=== PATIENT | male | born 1950 | race Caucasian/White ===

== ENCOUNTER → 2022-05-03 | Outpatient (CLI) | payer MEDICARE, OTHER | LOC: M RAD 09:42 | PROVIDERS: ATTEND Internal Medicine Pulmonary Disease | DX: R91.8 Other nonspecific abnormal finding of lung field (principal) ==

== ENCOUNTER → 2022-05-27 | Outpatient (CLI) | payer MEDICARE, OTHER | LOC: M RAD 12:27 | PROVIDERS: ATTEND Internal Medicine Pulmonary Disease | DX: J84.116 Cryptogenic organizing pneumonia (principal) ==

== ENCOUNTER → 2022-06-29 | Outpatient (CLI) | payer MEDICARE, OTHER | LOC: M RAD 10:19 | PROVIDERS: ATTEND Internal Medicine Pulmonary Disease | DX: R91.8 Other nonspecific abnormal finding of lung field (principal) ==

== ENCOUNTER → 2022-08-02 | Outpatient (CLI) | payer MEDICARE, OTHER ==
[~2022-08-02] MED LIST: ASPI81TA26 PO; ATOR1TAB19 PO; FURO40TA2 PO; METO1TAB7 PO; PANT40TA29 PO; POTA-149 PO; SYNT100T PO
== END ==
LOC: M LABSMTC 10:46
PROVIDERS: ATTEND Anesthesiology
DX: Z01.812 Encounter for preprocedural laboratory examination (principal); Z20.822 Contact with and (suspected) exposure to COVID-19

== ENCOUNTER 2022-08-04 06:15 | Day surgery (SDC) | payer MEDICARE, OTHER ==
[~2022-08-04] VITALS: Ht 167.6 cm; Wt 93.3 kg
[~2022-08-04 06:15] MED LIST changes: +ALBUTEROL SULFATE 2.5MG/0.5ML INH NEB SOLN INH ONE; +LIDOCAINE PRES-FREE 2% 10ML AMP INH ONE
[2022-08-04] MEDS ORDERED: GLYCOPYRROLATE INJ 0.2 MG/ML 2 ML VIAL As Ordered ONE (07:08)
[2022-08-04] MEDS ORDERED: propofoL 200 MG/20 ML VIAL As Ordered ONE (07:08)
[2022-08-04] MEDS ORDERED: fentaNYL 100 MCG/2 ML INJECTION As Ordered ONE (07:10)
[2022-08-04] MEDS ORDERED: MIDAZOLAM INJ 2MG/2ML VIAL As Ordered ONE (07:10)
[2022-08-04] MEDS ORDERED: LIDOCAINE VISCOUS 2% SOLN 15ML UDC As Ordered ONE (07:14)
[2022-08-04] MEDS ORDERED: THROMBIN 5,000 UNITS VIAL As Ordered ONE (07:14)
[2022-08-04] MEDS ORDERED: LIDOCAINE 1% SDV 30ML VIAL As Ordered ONE (07:14)
[2022-08-04] MEDS ORDERED: CETACAINE SPRAY 5GM As Ordered ONE (07:14)
[2022-08-04] MEDS ORDERED: EPINEPHrine 1MG/10ML SYRINGE 1.5IN As Ordered ONE (07:14)
[2022-08-04] MEDS ORDERED: LR 1,000 ML IV SCH (07:15)
[2022-08-04] MEDS ORDERED: ONDANSETRON 4MG 2ML VIAL As Ordered ONE (07:42)
[2022-08-04] MEDS ORDERED: ONDANSETRON 4MG 2ML VIAL IV PRN (08:15)
[2022-08-04 10:40] VITALS: BP 122/61
== END 2022-08-04 10:47 | disposition home or self-care (01) ==
LOC: M SDC 06:15
PROVIDERS: ATTEND Internal Medicine Pulmonary Disease
DX: J42 Unspecified chronic bronchitis (principal); R91.8 Other nonspecific abnormal finding of lung field; I25.10 Atherosclerotic heart disease of native coronary artery without angina pectoris; I25.2 Old myocardial infarction; I11.0 Hypertensive heart disease with heart failure; I50.9 Heart failure, unspecified; E78.00 Pure hypercholesterolemia, unspecified; R60.0 Localized edema; Z95.0 Presence of cardiac pacemaker; Z86.718 Personal history of other venous thrombosis and embolism; K21.9 Gastro-esophageal reflux disease without esophagitis; E03.9 Hypothyroidism, unspecified; Z87.891 Personal history of nicotine dependence; Z86.16 Personal history of COVID-19; Z95.5 Presence of coronary angioplasty implant and graft; Z95.2 Presence of prosthetic heart valve; Z98.890 Other specified postprocedural states; Z79.899 Other long term (current) drug therapy; Z79.890 Hormone replacement therapy; Z79.82 Long term (current) use of aspirin; Z79.52 Long term (current) use of systemic steroids
CPT/HCPCS: 31623; 31624; 71045; 87070; 87071; 87102; 87116; 87205; 87206; 88104; J2250; J2405; J3010

== ENCOUNTER 2022-09-20 12:30 | Inpatient (IN) | payer MEDICARE, OTHER ==
[~2022-09-20] VITALS: Ht 167.6 cm; Wt 91.8 kg
[~2022-09-20 12:30] MED LIST changes: -ALBUTEROL SULFATE 2.5MG/0.5ML INH NEB SOLN INH ONE; -LIDOCAINE PRES-FREE 2% 10ML AMP INH ONE
[2022-09-20] MEDS ORDERED: PRED10TA2 PO (12:41)
[2022-09-20 13:48] LABS: BASO % 0.3 % (0.0-1.0); EOS % 0.3 % (0.0-3.0); HEMATOCRIT 45.7 % (42.0-52.0); HEMOGLOBIN 15.3 g/dl (13.5-17.5); LYMPH # 0.8 10^3/uL (1.5-5.0); LYMPH % 6.2 % (24.0-44.0); MEAN CORPUSCULAR HEMOGLOBIN 32.5 pg (27.0-33.0); MEAN CORPUSCULAR HGB CONC 33.5 g/dl (32.0-36.5); MONO # 0.7 10^3/uL (0.0-0.8); MONO % 5.6 % (2.0-8.0); NEUTROPHILS # 10.7 10^3/uL (1.5-8.5); NEUTROPHILS % 86.5 % (36.0-66.0); PLATELET COUNT, AUTOMATED 328 10^3/uL (150-450); RED BLOOD COUNT 4.71 10^6/uL (4.30-6.10); WHITE BLOOD COUNT 12.3 10^3/uL (4.0-10.0)
[2022-09-20 13:56] LABS: INR 0.95; PROTHROMBIN TIME 12.9 SECONDS (12.5-14.5)
[2022-09-20 14:10] LABS: CPK CREATINE PHOSPHOKINASE 77 U/L (46-171)
[2022-09-20 14:14] LABS: ALBUMIN 4.1 G/DL (3.2-5.2); ALKALINE PHOSPHATASE 63 U/L (46-116); ALT/SGPT 19 U/L (7.0-40); AST/SGOT 22 U/L (<34); BILIRUBIN,DIRECT 0.2 MG/DL (<0.4); BILIRUBIN,TOTAL 0.6 MG/DL (0.3-1.2); BLOOD UREA NITROGEN 23 MG/DL (9-23); CALCIUM LEVEL 9.6 MG/DL (8.3-10.6); CARBON DIOXIDE LEVEL 30 MMOL/L (20-31); CHLORIDE LEVEL 103 MMOL/L (98-107); CK-MB VALUE MASS < 1.0 NG/ML (<3.6); CREATININE FOR GFR 0.81 MG/DL (0.70-1.30); GLOMERULAR FILTRATION RATE > 60.0 (>42); GLUCOSE, FASTING 101 MG/DL (74-106); MB/CK RELATIVE INDEX 1.29 (< OR =4); POTASSIUM SERUM 4.1 MMOL/L (3.5-5.1); SODIUM LEVEL 140 MMOL/L (136-145); THYROID STIMULATING HORMONE 4.594 uIU/ML (0.55-4.78); THYROXINE (T4) 9.9 UG/DL (4.5-10.9); TOTAL PROTEIN 7.2 G/DL (5.7-8.2)
[2022-09-20] MEDS ORDERED: ISOVUE-370 76% 100ML VIAL As Ordered ONE (14:18)
[2022-09-20 14:45] LABS: CK-MB VALUE MASS < 1.0 NG/ML (<3.6)
[2022-09-20 14:46] LABS: CPK CREATINE PHOSPHOKINASE 71 U/L (46-171)
[2022-09-20] MEDS ORDERED: IPRATROPIUM 0.5MG/ALBUTEROL 2.5MG INH SOL UD 3ML (DUONEB) NEB ONE (14:55)
[2022-09-20] MEDS ORDERED: LevoFLOXacin IV 750 MG in IV 1 EA IV ONE (15:05)
[2022-09-20 15:38] VITALS: O2SAT 97
[2022-09-20] MEDS ORDERED: SILV50CR TOP (16:57)
[2022-09-20] MEDS ORDERED: ALBU8.5H INH (16:57)
[2022-09-20] MEDS ORDERED: HOME MED LIST COMPLETE! XX SCH (17:00)
[2022-09-20] MEDS: LACTOBACILLUS ACIDOPHILUS CAP (BACID) PO SCH (17:07)
[2022-09-20] MEDS: cefTRIAXone SOD 1 GM in D5W MINI-BAG PLUS 50 ML IV SCH (17:07)
[2022-09-20] MEDS ORDERED: NS 500 ML IV ONE (18:15)
[2022-09-20 18:18] VITALS: BP 133/69
[2022-09-20] MEDS ORDERED: NS 1,000 ML IV ONE (18:20)
[2022-09-20] MEDS ORDERED: NS 1,000 ML IV SCH (18:20)
[2022-09-20] MEDS: predniSONE 20 MG TAB PO SCH (18:34)
[2022-09-20] MEDS: DOXYCYCLINE HYCLATE 100MG TABLET PO SCH (18:57)
[2022-09-20] MEDS: IPRATROPIUM 0.5MG/ALBUTEROL 2.5MG INH SOL UD 3ML (DUONEB) NEB SCH (19:25)
[2022-09-20 20:09] VITALS: BP 110/58
[2022-09-21] VITALS (7 sets, daily range): BP systolic 100–119; BP diastolic 57–70
[2022-09-21] MEDS: IPRATROPIUM 0.5MG/ALBUTEROL 2.5MG INH SOL UD 3ML (DUONEB) NEB SCH ×4 (01:04→20:21)
[2022-09-21] MEDS: LEVOTHYROXINE 100MCG TABLET (0.1MG) PO SCH (05:21)
[2022-09-21] MEDS: DOXYCYCLINE HYCLATE 100MG TABLET PO SCH ×2 (05:22→17:31)
[2022-09-21 05:56] LABS: BASO # 0.1 10^3/uL (0.0-0.2); BASO % 0.3 % (0.0-1.0); EOS # 0.2 10^3/uL (0.0-0.5); EOS % 1.4 % (0.0-3.0); HEMATOCRIT 39.5 % (42.0-52.0); HEMOGLOBIN 13.4 g/dl (13.5-17.5); LYMPH # 1.4 10^3/uL (1.5-5.0); LYMPH % 9.6 % (24.0-44.0); MEAN CORPUSCULAR HEMOGLOBIN 32.9 pg (27.0-33.0); MEAN CORPUSCULAR HGB CONC 33.9 g/dl (32.0-36.5); MEAN CORPUSCULAR VOLUME 97.1 fl (80.0-96.0); MONO # 1.3 10^3/uL (0.0-0.8); NEUTROPHILS # 11.4 10^3/uL (1.5-8.5); NEUTROPHILS % 78.5 % (36.0-66.0); PLATELET COUNT, AUTOMATED 273 10^3/uL (150-450); RED BLOOD COUNT 4.07 10^6/uL (4.30-6.10); WHITE BLOOD COUNT 14.5 10^3/uL (4.0-10.0)
[2022-09-21 06:08] LABS: BLOOD UREA NITROGEN 23 MG/DL (9-23); CALCIUM LEVEL 8.4 MG/DL (8.3-10.6); CARBON DIOXIDE LEVEL 28 MMOL/L (20-31); CHLORIDE LEVEL 105 MMOL/L (98-107); CREATININE FOR GFR 0.76 MG/DL (0.70-1.30); GLOMERULAR FILTRATION RATE > 60.0 (>42); GLUCOSE, FASTING 75 MG/DL (74-106); PHOSPHORUS LEVEL 3.8 MG/DL (2.4-5.1); POTASSIUM SERUM 3.7 MMOL/L (3.5-5.1); SODIUM LEVEL 142 MMOL/L (136-145)
[2022-09-21] MEDS: ACETYLCYSTEINE 20% 4 ML VIAL (200MG/ML) INH SCH ×2 (08:00→20:21)
[2022-09-21] MEDS ORDERED: NS 500 ML IV ONE (08:20)
[2022-09-21] MEDS: ASPIRIN 81MG ENTERIC TABLET PO SCH (08:41)
[2022-09-21] MEDS: ENOXAPARIN 40MG/0.4ML SYRINGE (J1650 PER 10MG) SC SCH (08:41)
[2022-09-21] MEDS: predniSONE 20 MG TAB PO SCH (08:42)
[2022-09-21] MEDS: LACTOBACILLUS ACIDOPHILUS CAP (BACID) PO SCH ×2 (08:42→17:30)
[2022-09-21] MEDS: FUROSEMIDE 40 MG TAB PO SCH (08:43)
[2022-09-21] MEDS: METOPROLOL SUCC (TopROL XL) 50MG **XL** TAB PO SCH (08:43)
[2022-09-21] MEDS: ATORVASTATIN 10 MG TAB PO SCH (08:43)
[2022-09-21] MEDS: PANTOPRAZOLE 40MG TAB (PROTONIX) PO SCH (08:43)
[2022-09-21] MEDS: guaiFENesin ER 600 MG TAB PO SCH ×2 (10:25→20:05)
[2022-09-21] MEDS ORDERED: NS 1,000 ML IV ONE (13:20)
[2022-09-21] MEDS: cefTRIAXone SOD 1 GM in D5W MINI-BAG PLUS 50 ML IV SCH (17:30)
[2022-09-22] MEDS: IPRATROPIUM 0.5MG/ALBUTEROL 2.5MG INH SOL UD 3ML (DUONEB) NEB SCH ×2 (01:13→07:30)
[2022-09-22 03:36] VITALS: BP 116/58
[2022-09-22] MEDS: LEVOTHYROXINE 100MCG TABLET (0.1MG) PO SCH (05:17)
[2022-09-22] MEDS: DOXYCYCLINE HYCLATE 100MG TABLET PO SCH (05:17)
[2022-09-22 05:22] LABS: HEMATOCRIT 36.4 % (42.0-52.0); HEMOGLOBIN 12.1 g/dl (13.5-17.5); MEAN CORPUSCULAR HEMOGLOBIN 32.4 pg (27.0-33.0); MEAN CORPUSCULAR HGB CONC 33.2 g/dl (32.0-36.5); MEAN CORPUSCULAR VOLUME 97.6 fl (80.0-96.0); PLATELET COUNT, AUTOMATED 221 10^3/uL (150-450); RED BLOOD COUNT 3.73 10^6/uL (4.30-6.10)
[2022-09-22 05:47] LABS: BLOOD UREA NITROGEN 23 MG/DL (9-23); CALCIUM LEVEL 8.4 MG/DL (8.3-10.6); CARBON DIOXIDE LEVEL 24 MMOL/L (20-31); CHLORIDE LEVEL 109 MMOL/L (98-107); CREATININE FOR GFR 0.65 MG/DL (0.70-1.30); GLOMERULAR FILTRATION RATE > 60.0 (>42); GLUCOSE, FASTING 91 MG/DL (74-106); POTASSIUM SERUM 3.7 MMOL/L (3.5-5.1); SODIUM LEVEL 142 MMOL/L (136-145)
[2022-09-22] MEDS: ACETYLCYSTEINE 20% 4 ML VIAL (200MG/ML) INH SCH (07:30)
[2022-09-22 08:00] VITALS: BP 132/70
[2022-09-22] MEDS: LACTOBACILLUS ACIDOPHILUS CAP (BACID) PO SCH (08:14)
[2022-09-22] MEDS: ASPIRIN 81MG ENTERIC TABLET PO SCH (08:14)
[2022-09-22] MEDS: ENOXAPARIN 40MG/0.4ML SYRINGE (J1650 PER 10MG) SC SCH (08:14)
[2022-09-22] MEDS: predniSONE 20 MG TAB PO SCH (08:14)
[2022-09-22] MEDS: ATORVASTATIN 10 MG TAB PO SCH (08:15)
[2022-09-22] MEDS: PANTOPRAZOLE 40MG TAB (PROTONIX) PO SCH (08:15)
[2022-09-22 08:16] VITALS: BP 132/70
[2022-09-22] MEDS: METOPROLOL SUCC (TopROL XL) 50MG **XL** TAB PO SCH (08:16)
[2022-09-22] MEDS: FUROSEMIDE 40 MG TAB PO SCH (08:16)
[2022-09-22] MEDS: guaiFENesin ER 600 MG TAB PO SCH (08:16)
[2022-09-22] MEDS ORDERED: ACET20%4ML INH (10:10)
[2022-09-22] MEDS ORDERED: PROB250C PO (10:10)
[2022-09-22] MEDS ORDERED: DOXY100T PO (10:10)
[2022-09-22] MEDS ORDERED: MUCI600T31 PO (10:10)
[2022-09-22] MEDS ORDERED: PRED10TA2 PO (10:10)
[2022-09-22] MEDS ORDERED: AUGM500T34 PO (10:10)
[2022-09-22] MEDS ORDERED: NACCAP PO (11:07)
[2022-09-22 12:00] VITALS: BP 144/82
[2022-09-23 16:08] LABS: BODY FLUID CULTURE Not indicated. (.); LEGIONELLA ANTIGEN URINE Negative (Negative); ORGANISM ID Not indicated. (.); SPECIMEN SOURCE Urine (.); URINE STREP PNEUMONIAE ANTIGEN Negative (Negative)
== END 2022-09-22 13:22 | disposition home or self-care (01) | DRG 178 ==
LOC: M ED 12:30 → M ED INP 15:50 → ENRESERV 17:23 → M PCU 18:16
PROVIDERS: ADMIT Internal Medicine; ATTEND Internal Medicine
DX: J15.6 Pneumonia due to other Gram-negative bacteria (principal); J84.116 Cryptogenic organizing pneumonia; E87.20 Acidosis, unspecified; I25.10 Atherosclerotic heart disease of native coronary artery without angina pectoris; I48.91 Unspecified atrial fibrillation; I10 Essential (primary) hypertension; E78.5 Hyperlipidemia, unspecified; E03.9 Hypothyroidism, unspecified; K21.9 Gastro-esophageal reflux disease without esophagitis; Z20.822 Contact with and (suspected) exposure to COVID-19; Z79.82 Long term (current) use of aspirin; Z79.890 Hormone replacement therapy; Z79.899 Other long term (current) drug therapy; Z87.891 Personal history of nicotine dependence; Z88.1 Allergy status to other antibiotic agents; Z95.5 Presence of coronary angioplasty implant and graft; Z95.0 Presence of cardiac pacemaker; Z79.01 Long term (current) use of anticoagulants

== ENCOUNTER → 2023-01-26 | Outpatient (CLI) | payer MEDICARE, OTHER ==
[~2023-01-26] MED LIST changes: +ACET20%4ML INH; +ALBU8.5H INH; +AUGM500T34 PO; +DOXY100T PO; +MUCI600T31 PO; +NACCAP PO; +PRED10TA2 PO; +PROB250C PO; +SILV50CR TOP
== END ==
LOC: M RAD 10:15
PROVIDERS: ATTEND Internal Medicine Pulmonary Disease
DX: R91.8 Other nonspecific abnormal finding of lung field (principal)

== ENCOUNTER → 2023-06-23 | Outpatient (CLI) | payer MEDICARE, OTHER | LOC: M PLAIMG 09:08 | PROVIDERS: ATTEND Internal Medicine | DX: J84.116 Cryptogenic organizing pneumonia (principal); J44.9 Chronic obstructive pulmonary disease, unspecified; R91.8 Other nonspecific abnormal finding of lung field ==